=== PATIENT | female | born 1990 | race Caucasian/White ===

== ENCOUNTER 2023-12-05 16:53 | Emergency (ER) | payer OTHER, MEDICAID ==
[~2023-12-05] VITALS: Ht 157.5 cm; Wt 79.4 kg
[2023-12-05 16:58] VITALS: BP_SYST 133; PULSE 87; RESP 16; TEMP 98.1; O2SAT 100
[2023-12-05] MEDS ORDERED: IBUPROFEN 800 MG TABLET PO ONE (20:00)
[2023-12-05] MEDS ORDERED: HYDROcodone/ACETAMIN 10-325 MG TAB PO ONE (20:00)
[2023-12-05] MEDS ORDERED: IBUP-1969 PO (20:26)
[2023-12-05] MEDS ORDERED: SOM350 PO (20:26)
[2023-12-05 20:30] VITALS: BP_SYST 126; PULSE 89; RESP 18; TEMP 98.5; O2SAT 99
== END 2023-12-05 20:30 | disposition home or self-care (01) ==
LOC: SED 16:53
DX: S93.501A Unspecified sprain of right great toe, initial encounter (principal); S43.402A Unspecified sprain of left shoulder joint, initial encounter; S80.12XA Contusion of left lower leg, initial encounter; S80.11XA Contusion of right lower leg, initial encounter; M79.632 Pain in left forearm; V49.49XA Driver injured in collision with other motor vehicles in traffic accident, initial encounter; Y93.89 Activity, other specified; Y92.410 Unspecified street and highway as the place of occurrence of the external cause; Y99.8 Other external cause status
CPT/HCPCS: 73030; 73090; 73590; 99284